=== PATIENT | female | born 1960 | race Caucasian/White ===

== ENCOUNTER → 2018-06-13 | Outpatient (CLI) | payer OTHER ==
[~2018-06-13] MED LIST: ADVAIR HFA 230M12 GM INH; CLARITIN10 MG PO; CLONAZEPAM 0.50.5 M1 PO; CLOTRIMAZOLE 1%15 G1 TOP; DIFLUCAN200 MG PO; FLOMAX0.4 MG PO; IRON18 M1 PO; LEXAPRO 10 MG T10 M2 PO; NAPROSYN500 MG PO; NYSTATIN100000 UNI TOP; OXYCONTIN10 M1 PO; PREMARIN0.625 MG PO; TRAMADOL 50 MG50 MG PO; TURMERIC500 M2 PO; VITAMIN D3400 UNIT PO; ZANTAC 150MG T150 MG PO
--- NOTE | ~2018-06-13 | EKG ---
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
== END | disposition home or self-care (01) ==
LOC: LITH 09:12
DX: N20.0 Calculus of kidney (principal); J44.9 Chronic obstructive pulmonary disease, unspecified; M19.90 Unspecified osteoarthritis, unspecified site; Z86.010 Personal history of colon polyps; Z87.19 Personal history of other diseases of the digestive system; Z96.641 Presence of right artificial hip joint; Z88.8 Allergy status to other drugs, medicaments and biological substances; Z79.899 Other long term (current) drug therapy